=== PATIENT | male | born 1960 | race Hispanic/Latino ===

== ENCOUNTER → 2024-08-27 | Outpatient (CLI) | payer OTHER ==
[~2024-08-27] MED LIST: [UNRECOGNIZED DRUG - CODE] TP
--- NOTE | 2024-08-27 16:57 | HMCIMG ---
Exam Type: MR KNEE RIGHT WO Clinical Information: M25.561 PAIN R KNEE Comparison: None Technique: MRI of the knee was done with triplane localizer, axial T2 as well as sagittal proton density T2, T1, and fat-saturated T2. In addition, coronal T1 and coronal fat-saturated spin-echo sequences are available for review. FINDINGS: There is a complex tear of the anterior horn of the lateral meniscus with inferior articular surface involvement. No other meniscal tears are present. No effusions are identified. No bony abnormalities are seen. The articular cartilage is preserved. The cruciate and collateral ligaments are intact. No periarticular soft tissue abnormalities are seen. There are no other gross abnormalities. IMPRESSION: There is a complex tear of the anterior horn of the lateral meniscus with inferior articular surface involvement.
== END | disposition home or self-care (01) ==
LOC: RAH 15:11
PROVIDERS: ATTEND Internal Medicine
DX: S83.271A Complex tear of lateral meniscus, current injury, right knee, initial encounter (principal); X58.XXXA Exposure to other specified factors, initial encounter; Y93.89 Activity, other specified; Y92.89 Other specified places as the place of occurrence of the external cause; Y99.8 Other external cause status
CPT/HCPCS: 73721